=== PATIENT | female | born 2005 | race Caucasian/White ===

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

== ENCOUNTER 2023-01-16 00:23 | Emergency (ER) | payer OTHER, SELFPAY ==
[2023-01-16 00:49] VITALS: BP 115/58; PULSE 98; RESP 16; TEMP 36.4; O2SAT 97; BMI 21.7
--- NOTE | 2023-01-16 01:19 | ED_ITS ---
HPI - General Adult General Chief complaint: General Medical Stated complaint: , stomach/abd pain Time Seen by Provider: 01/16/23 01:11 History of Present Illness HPI narrative: Patient is a 17-year-old female first-time patient claims her due date is March 08. Normally gets her OB care at [facility]. Presented today with having diffuse abdominal pain over the last hour. Patient claimed is very constant. It is not associated with pain on urination. It is not associated with any vomiting. Positive nausea that is been ongoing. There has been no change in bowel movement. Patient is from home. Related Data Previous Rx's Medication Instructions Recorded ondansetron 4 mg disintegrating 4 mg PO Q8H PRN nausea and 09/13/21 tablet vomiting #10 tabs ibuprofen 400 mg tablet 400 mg PO Q6H PRN pain #20 tabs 02/16/22 ondansetron 4 mg disintegrating 4 mg PO TID PRN nausea and 02/16/22 tablet vomiting 5 days #10 tabs sulfamethoxazole 800 1 tab PO BID Pyelonephritis 10 02/16/22 mg-trimethoprim 160 mg tablet days #20 tabs (Bactrim DS) Allergies Allergy/AdvReac Type Severity Reaction Status Date / Time No Known Allergies* Allergy Uncoded 02/05/20 20:14 Review of Systems Review of Systems: Positive abdominal pain Yes all other systems are reviewed and are negative [facility] Past Medical History Attestation statement: The following information was validated with the patient. Social History Social History Alcohol intake: never Patient Tobacco Use Status: Never used Tobacco Advance Directives: No Advance Directives Information Provided: No Physical Exam ED Vital Signs: Vital Signs - 24 hr 01/16/23 00:49 01/16/23 01:41 Temperature 97.6 F Pulse Rate 98 89 Respiratory Rate 16 18 Blood Pressure 115/58 L 102/63 Pulse Oximetry 97 98 Oxygen Delivery Method Room Air Room Air BMI result Body Mass Index 21.7 Appearance: Alert. Oriented X3. No acute distress. Eyes: Pupils equal, round and reactive to light. ENT: Pharynx normal. Neck: Normal inspection. Neck supple. No lymph nodes noted. No crepitus CVS: Normal heart rate and rhythm. Pulses normal. Normal S1 and S2 Respiratory: No respiratory distress. Breath sounds normal. No Wheezing. No rales Abdomen: Gravid uterus above the level of umbilicus. Skin: Skin warm and dry. Normal skin color. Normal skin turgor. Extremities: No lower extremity edema. Neurovascular intact to all extremities. No Lacerations. No Rash Neuro: Oriented X 3. No motor deficit. No sensory deficit. Moving all extermities. No slurred speech Medical Decision Making Medical Decision Making MDM Narrative: Explained to patient there is no reliner Labor and delivery service at [facility]. Patient has been having abdominal pain for the last hour. Did not break her water. The pain is constant associated with nausea. Will get a heart tone. Patient's case discussed with OBGYN at [facility]. Substitute School Nurse brenda luo discussed the case with Dr. Nicki Gale who is the reliner batch or continuous still operator. Will accept patient. Risk and benefit of transfer explained to patient. Patient to be transferred to the Labor and delivery floor at [facility]. Currently in guarded condition. Did not appear to be in active labor. Patient's heart tone within the 140s. Explained to patient risk and benefit of transfer patient accepted the transfer. Differential Diagnosis Differential Diagnoses: The differential diagnosis associated with the presentation includes Labor, abdominal pain, related issue, appendicitis, biliary issues Admission/Observation Consideration of admission/observation: Escalation of care including admission/observation considered No OBGYN available at [facility] Consult Healthcare Provider Management of the patient was discussed with: Online Content Developer OB at [facility] Independent Historian Clinical information obtained from an independent historian. History obtained from or confirmed by: Parent Chronic Conditions Patient is approximately 31 weeks Critical Care Time Critical Care Time Critical Care Time: Yes Total Critical Care Time: 40 Attestation: I have personally provided 40 minutes of critical care time exclusive of time spent on separately billable procedures. Time includes review of lab data, radiology results, discussion with consultants, and monitoring for potential decompensation. Interventions were performed as documented above Discharge Plan Discharge Clinical Impression: Patient Disposition: er Acute Care Hospital Transfer Details: Transferred to [facility] reliner Prescriptions: No Action ondansetron 4 mg tablet,disintegrating 4 mg PO Q8H PRN (Reason: nausea and vomiting) Qty: 10 0RF sulfamethoxazole-trimethoprim [Bactrim DS] 800-160 mg tablet 1 tab PO BID 10 Days Qty: 20 0RF ibuprofen 400 mg tablet 400 mg PO Q6H PRN (Reason: pain) Qty: 20 0RF ondansetron 4 mg tablet,disintegrating 4 mg PO TID PRN (Reason: nausea and vomiting) 5 Days Qty: 10 0RF
--- NOTE | 2023-01-16 01:34 | PC.NURSE ---
FHT 141
[2023-01-16 01:41] VITALS: BP 102/63; PULSE 89; RESP 18; O2SAT 98
--- NOTE | 2023-01-16 01:46 | MHC.EDTECH ---
Call out to [facility] @[phone] for potential transfer to [facility]
--- NOTE | 2023-01-16 02:26 | PC.NURSE ---
Report to RN at [facility] Labor and Delivery
== END 2023-01-16 02:27 | disposition short-term general hospital (02) ==
PROVIDERS: Emergency Provider Emergency Medicine Emergency Medical Services
DX: O26.93 Pregnancy related conditions, unspecified, third trimester (principal); Z3A.31 31 weeks gestation of pregnancy
CPT/HCPCS: 99285

== ENCOUNTER 2024-02-23 19:09 | Emergency (ER) | payer OTHER, SELFPAY ==
--- NOTE | 2024-02-23 19:11 | ECG_ITS ---
Test Reason : CHEST PAIN Blood Pressure : / mmHG Vent. Rate : 082 BPM Atrial Rate : 082 BPM P-R Int : 132 ms QRS Dur : 080 ms QT Int : 360 ms P-R-T Axes : 035 037 003 degrees QTc Int : 420 ms Normal sinus rhythm with sinus arrhythmia Normal ECG When compared with ECG of 28-SEP-2022 23:01, No significant change was found Referred By: Magdalena Boyd Electronically Signed By:JOANN SHER
--- NOTE | 2024-02-23 19:14 | ED.CHESTPAIN ---
HPI - Chest Pain General Chief Complaint: Chest Pain Stated Complaint: chest pains/sent from Urgent Care Time Seen by Provider: 02/23/24 19:45 Source: patient, RN notes reviewed and old records reviewed Mode of arrival: ambulatory Limitations: no limitations History of Present Illness ED Provider: Petrona Boyd PA-C HPI narrative: 19 yo otherwise healthy female presents to the ER from Urgent Care for evaluation of central pleuritic chest pains that started yesterday. Her EKG there showed RSR in lead III with no prior for comparison. She is on the [place] shot for control. She was sent in to the ER to r/o PE. she states for the last week she has been coughing a lot and was having coughing fits. she denied any associated fever, shortness of breath or difficulty breathing. Pain is reproducible. worse with movement and touching the chest wall. not tachycardic or hypoxic. MD complaint: chest pain Onset (ago): day(s) (1) Timing of current episode: episodic Onset: other (coughing, movement) Pain location: parasternal Pain radiation: none Severity: moderate Quality: sharp Relieving factors: rest Exacerbating factors: palpation and movement Context: recent illness Associated symptoms: cough Treatment prior to arrival: none Risk Factors Coronary artery disease risk factors: none Thoracic aortic dissection risk factors: none Related Data Previous Rx's ?Medication ?Instructions ?Recorded ondansetron 4 mg disintegrating 4 mg PO Q8H PRN nausea and 09/13/21 tablet vomiting #10 tabs ibuprofen 400 mg tablet 400 mg PO Q6H PRN pain #20 tabs 02/16/22 ondansetron 4 mg disintegrating 4 mg PO TID PRN nausea and 02/16/22 tablet vomiting 5 days #10 tabs sulfamethoxazole 800 1 tab PO BID Pyelonephritis 10 02/16/22 mg-trimethoprim 160 mg tablet days #20 tabs (Bactrim DS) naproxen 500 mg tablet,delayed 500 mg PO BID PRN pain #20 tabs 02/23/24 release Allergies Allergy/AdvReac Type Severity Reaction Status Date / Time No Known Allergies* Allergy none Uncoded 02/23/24 19:38 Review of Systems Review of Systems: Yes all other systems are reviewed and are negative PMFSH Social History Social History Alcohol intake: never Patient Tobacco Use Status: Never used Tobacco Smoked in Last 30 Days: No Use of substances other than those prescribed or required for medical reasons: No Advance Directives: No Advance Directives Information Provided: No Do you have a plan to hurt others: No Plan Patient : No Physical Exam Vital Signs: Vital Signs: Last Vital Signs Temp 98.6 F 02/23/24 20:02 Pulse 73 02/23/24 20:02 Resp 14 02/23/24 20:02 BP 105/58 L 02/23/24 20:02 Pulse Ox 96 02/23/24 20:02 O2 Del Method Room Air 02/23/24 20:02 BMI result Body Mass Index 32.0 Appearance: Alert. Oriented X3. No acute distress. Head: normocephalic, atraumatic. Eyes: Pupils equal, round and reactive to light. ENT: Pharynx normal. No tonsillar swelling or exudate. Neck: Normal inspection. Neck supple. CVS: Normal heart rate and rhythm. Pulses normal. Respiratory: No respiratory distress. Breath sounds normal. Anterior chest wall tenderness along the parasternal area Abdomen: Soft and nontender. +BS x4 Skin: Skin warm and dry. Normal skin color. Normal skin turgor. No rashes. Extremities: No lower extremity edema. No joint swelling. Negative Christopher's sign. Neuro/psych: Oriented X 3. No motor deficit. No sensory deficit. CN II-XII intact. Normal speech and cognition. Course Course Course Narrative: This is a Rapid Medical Examination (RME) performed by Petrona Boyd PA-C in triage. Full HPI, ROS, assessment and treatment plan per primary provider in the Main ED. 19 yo female presenting to the ER from Urgent Care for evaluation of acute onset of pleurtitic chest pain that started yesterday. was sick coughing a week prior. Her EKG there showed RSR in lead III with no prior for comparison. She is on the Depot shot for control. She was sent in to the ER to r/o PE. pain is reproducible. not tachycardic or hypoxic. Plan: EKG, DDIMER, labs. CXR at urgent care was normal. Medical Decision Making Medical Decision Making MDM Narrative: 19 yo female presenting to the ER for evaluation of pleuritic chest pain that started yesterday after being sick with a cough for this week. VS are stable. exam is revealing for reproducible chest pain. not hypoxic or tachycardic. EKG repeated today showed no change from prior. she has a mild leukcytosis which is most c/w her recent URI. CXR at showed no PNA. most likely viral process. other labs are unremarkable. ddimer is negative. patient treated with nsaid and tylenol with improvement in pain stable for d/c home with treatment for costochondritis. Differential Diagnosis Differential Diagnoses: The differential diagnosis associated with the presentation includes costochondritis, bronchitis, PNA, COVID, low suspicion for PE or ACS Admission/Observation Consideration of admission/observation: Escalation of care including admission/observation considered Lab Data MDM Lab Attestation statement: I reviewed the patient's lab results. 02/23/24 19:39 02/23/24 19:39 Labs: Lab Results 02/23/24 Range/Units 19:39 WBC 13.0 H (4.8-10.8) X10*3/uL RBC 4.64 (4.20-5.50) X10*6/uL Hgb 12.9 (12.0-16.0) g/dl Hct 39.7 (37.0-47.0) % MCV 85.6 (80.0-98.0) fL MCH 27.8 (27.0-33.0) pg MCHC 32.5 (31.0-35.0) g/dl RDW 13.4 (11.0-16.0) % Plt Count 447 H D (160-400) X10*3/uL MPV 10.5 (9.4-12.3) fL Immature Gran % (Auto) 0.7 H (0.0-0.4) % Neut % (Auto) 68.0 (45-73) % Lymph % (Auto) 22.1 (20-40) % Rogers % (Auto) 7.1 (2-11) % Eos % (Auto) 1.8 (0-4) % Baso % (Auto) 0.3 (0-2) % Lymph # (Auto) 2.9 (1.2-4.9) X10*3/uL Rogers # (Auto) 0.9 (0.1-1.2) X10*3/uL Eos # (Auto) 0.2 (0.0-0.4) X10*3/uL Baso # (Auto) 0.0 (0.0-0.2) X10*3/uL Abs Immat Gran (auto) 0.09 H (0.00-0.03) X10*3/uL Absolute Neuts (auto) 8.8 H (2.0-8.3) x10*3/uL Absolute Nucleated RBC 0.000 (0.0-0.012) X10*3/uL Nucleated RBC % (auto) 0.0 (0.0-0.2) /100WBC PT 12.3 (10.9-12.4) SEC INR 1.1 (0.9-1.1) APTT 35.6 (26.0-36.8) SEC D-Dimer High Sensitivty 176 NG/ML Sodium 140 (135-145) mmol/L Potassium 3.9 (3.3-5.1) mmol/L Chloride 106 (96-108) mmol/L Carbon Dioxide 27 (22-29) mmol/L Anion Gap 11 L (12-20) BUN 8 L (9-16) mg/dL Creatinine 0.74 (0.5-1.4) mg/dL Estim Creat Clear Calc 103.7 Estimated GFR > 60 Random Glucose 98 (60-115) mg/dL Calcium 9.3 (8.4-10.2) mg/dL Magnesium 2.2 (1.6-2.6) mg/dL Total Bilirubin 0.3 (0.0-1.0) mg/dL Direct Bilirubin 0.1 (0.0-0.5) mg/dL AST 16 (5-31) U/L ALT 17 (0-31) U/L Alkaline Phosphatase 66 (39-117) U/L Total Protein 7.6 (6.5-8.0) g/dL Albumin 4.4 (3.5-5.0) g/dL Independent Interpretation I performed an independent interpretation of an: EKG Interpretation: ekg w/ normal sinus rhythm, hr 82 bpm, no st segment elevations or depressions External Record Review External record reviewed: Office record and Prior outpatient radiology Tests considered The following testing was considered but not selected: CXR considered- was done at urgent care CTA considered - low suspicion for PE Prescription Management I considered prescription management with: Pain Medication and Antibiotic Critical Care Time Critical Care Time Critical Care Time: No Discharge Plan Discharge Clinical Impression: Costochondritis Patient Disposition: Home, Self-Care Instructions: Costochondritis (ED) Additional Instructions: Your lab workup today was reassuring against any blood clots in your chest. Your EKG that was done was unchanged compared to September of 2022. Your pain is most likely muscular. Recommend taking the prescribed anti-inflammatory medication 2 times a day as needed, take with food. Also recommend starting Tylenol 1000 mg every 6-8 hours. Rest and drink plenty of fluids. Follow-up with your doctor. If you develop new or worsening symptoms call 911 or come back to the ER for further evaluation. Prescriptions: New naproxen 500 mg tablet,delayed release (DR/EC) 500 mg PO BID PRN (Reason: pain) Qty: 20 0RF No Action ondansetron 4 mg tablet,disintegrating 4 mg PO Q8H PRN (Reason: nausea and vomiting) Qty: 10 0RF sulfamethoxazole-trimethoprim [Bactrim DS] 800-160 mg tablet 1 tab PO BID 10 Days Qty: 20 0RF ibuprofen 400 mg tablet 400 mg PO Q6H PRN (Reason: pain) Qty: 20 0RF ondansetron 4 mg tablet,disintegrating 4 mg PO TID PRN (Reason: nausea and vomiting) 5 Days Qty: 10 0RF Referrals: Lesly Peters MD [Primary Care Provider] - Stand Alone Forms: Work/School Release Print Language: Wolof
--- NOTE | 2024-02-23 19:31 | PC.NURSE ---
pt had a ekg and labs are being drawn still at this time.
[2024-02-23 19:33] VITALS: BP 112/57; PULSE 80; RESP 16; TEMP 37.1; O2SAT 98; BMI 32.0
--- NOTE | 2024-02-23 19:44 | PC.NURSE ---
pt back to waiting room, triage completed after ekg, labs taken. blood drawn took a long time per [facility]
[2024-02-23 19:46] LABS: Basophils Percent Auto 0.3 % (0-2); Eosinophils Absolute Auto 0.2 X10*3/uL (0.0-0.4); Eosinophils Percent Auto 1.8 % (0-4); Hematocrit 39.7 % (37.0-47.0); Hemoglobin 12.9 g/dl (12.0-16.0); Imm Gran Abs Auto 0.09 X10*3/uL (0.00-0.03); Imm Gran Pct Auto 0.7 % (0.0-0.4); Lymphocytes Absolute Auto 2.9 X10*3/uL (1.2-4.9); Lymphocytes Percent Auto 22.1 % (20-40); MANUAL DIFF FLAG NO; Mean Corpuscular HGB Conc 32.5 g/dl (31.0-35.0); Mean Corpuscular Hemoglobin 27.8 pg (27.0-33.0); Mean Corpuscular Volume 85.6 fL (80.0-98.0); Mean Platelet Volume 10.5 fL (9.4-12.3); Monocytes Absolute Auto 0.9 X10*3/uL (0.1-1.2); Monocytes Percent Auto 7.1 % (2-11); Neutrophils Absolute Auto 8.8 x10*3/uL (2.0-8.3); Platelet Count 447 X10*3/uL (160-400); Red Blood Count 4.64 X10*6/uL (4.20-5.50); Red Cell Distribution Width 13.4 % (11.0-16.0)
[2024-02-23 20:02] VITALS: BP 105/58; PULSE 73; RESP 14; TEMP 37; O2SAT 96
[2024-02-23 20:02] LABS: INTERNATIONAL NORM RATIO 1.1 (0.9-1.1); Prothrombin Time 12.3 SEC (10.9-12.4)
[2024-02-23 20:04] LABS: D Dimer High Sensitivity 176 NG/ML
[2024-02-23 20:05] LABS: Partial Thromboplastin Time 35.6 SEC (26.0-36.8)
[2024-02-23 20:13] LABS: Alanine Aminotransferase 17 U/L (0-31); Albumin Level 4.4 g/dL (3.5-5.0); Alkaline Phosphatase 66 U/L (39-117); Anion Gap 11 (12-20); Aspartate Amino Transferase 16 U/L (5-31); Bilirubin Direct 0.1 mg/dL (0.0-0.5); Bilirubin Total 0.3 mg/dL (0.0-1.0); Blood Urea Nitrogen 8 mg/dL (9-16); Calcium 9.3 mg/dL (8.4-10.2); Carbon Dioxide 27 mmol/L (22-29); Chloride 106 mmol/L (96-108); Creatinine Clr Calc Pharmacy 103.7; Estimated Glomerular Filt Rate > 60; Glucose Random 98 mg/dL (60-115); Magnesium 2.2 mg/dL (1.6-2.6); Potassium 3.9 mmol/L (3.3-5.1); Sodium 140 mmol/L (135-145); Total Protein 7.6 g/dL (6.5-8.0)
[2024-02-23] MEDS: Acetaminophen 325 MG TABLET 975 MG PO (20:17)
[2024-02-23] MEDS: Ketorolac Tromethamine 30 MG/ML VIAL IM (20:17)
[2024-02-23 20:22] LABS: Troponin-I High Sensitivity < 2.7 ng/L (<3.5-17.0)
[2024-02-23 20:23] VITALS: BP 105/58; PULSE 73; RESP 14; TEMP 37; O2SAT 96
== END 2024-02-23 20:29 | disposition home or self-care (01) ==
PROVIDERS: Physician Assistant; Emergency Provider Internal Medicine; PCP Pediatrics
DX: M94.0 Chondrocostal junction syndrome [Tietze] (principal); I49.8 Other specified cardiac arrhythmias; R07.89 Other chest pain; Z79.899 Other long term (current) drug therapy
CPT/HCPCS: 36415; 80048; 80076; 83735; 84484; 85025; 85379; 85610; 85730; 93005; 96372; 99284; 99285; J1885

== ENCOUNTER → 2024-02-23 19:11 | Outpatient (BNV) | payer OTHER, SELFPAY | PROVIDERS: Emergency Provider Internal Medicine; PCP Pediatrics; Visit Provider Internal Medicine | DX: R07.9 Chest pain, unspecified (principal) | CPT/HCPCS: 93010 ==